=== PATIENT | female | born 1970 | race Caucasian/White ===

== ENCOUNTER → 2019-08-05 | Outpatient (CLI) | payer OTHER ==
[2019-08-09 15:07] LABS: HPV 16 Negative (Negative); HPV 18 Negative (Negative); HPV OTHER HR TYPES Negative (Negative)
== END ==
LOC: LAB 09:24 → LAB SHORT 09:24
PROVIDERS: Nurse Practitioner Family
DX: Z01.419 Encounter for gynecological examination (general) (routine) without abnormal findings (principal)
CPT/HCPCS: 87070; 87147; 87205; 87624; G0123

== ENCOUNTER → 2022-01-01 | Outpatient (CLI) | payer OTHER | END | disposition home or self-care (01) | LOC: LAB SHORT 11:04 | DX: D22.5 Melanocytic nevi of trunk (principal) | CPT/HCPCS: 88305 ==

== ENCOUNTER 2022-08-05 09:26 | Day surgery (SDC) | payer OTHER ==
[~2022-08-05] VITALS: Ht 162.6 cm; Wt 76.4 kg
== END 2022-08-05 11:55 | disposition home or self-care (01) ==
LOC: ORSCSDS 09:26
PROVIDERS: Student in an Organized Health Care Education/Training Program
PROC: 0DBM8ZX Excision of Descending Colon, Via Natural or Artificial Opening Endoscopic, Diagnostic (ICD-10-PCS; principal; 2022-08-05 11:00)
DX: Z12.11 Encounter for screening for malignant neoplasm of colon (principal); D12.4 Benign neoplasm of descending colon
CPT/HCPCS: 88305; J2704; J7120

== ENCOUNTER → 2024-07-23 | Outpatient (CLI) | payer OTHER | LOC: LAB SHORT 10:27 → LAB 10:27 | DX: J02.9 Acute pharyngitis, unspecified (principal) | CPT/HCPCS: 87081 ==